=== PATIENT | female | born 2000 | race Caucasian/White ===

== ENCOUNTER 2021-07-06 16:24 | Emergency (ER) | payer MEDICAID, SELFPAY ==
--- NOTE | ~2021-07-06 | XR_ITS ---
EXAMINATION: XR CHEST CLINICAL INFORMATION: Chest pain COMPARISON: 08/19/2027 TECHNIQUE: Frontal view of the chest was obtained. FINDINGS: No significant abnormality is noted involving the heart, lungs, mediastinum, bony thorax or soft tissues. XR/XR chest 1V IMPRESSION: Unremarkable examination.
[2021-07-06 18:11] VITALS: BP 103/67; PULSE 70; RESP 17; TEMP 36.8; O2SAT 100; BMI 27.8
--- NOTE | 2021-07-06 18:17 | ECG_ITS ---
Test Reason : nausea Blood Pressure : / mmHG Vent. Rate : 059 BPM Atrial Rate : 059 BPM P-R Int : 146 ms QRS Dur : 074 ms QT Int : 412 ms P-R-T Axes : 075 034 008 degrees QTc Int : 407 ms Sinus bradycardia with sinus arrhythmia Otherwise normal ECG When compared with ECG of 19-AUG-2017 18:05, No significant change was found Referred By: Generic ED Physician Electronically Signed By:ISAAC GEORGE MD
[2021-07-06 19:01] LABS: MANUAL DIFF FLAG NO
[2021-07-06 19:15] LABS: Anion Gap 12 (12-20); Basophils Percent Auto 0.4 % (0-2); Blood Urea Nitrogen 13 mg/dL (9-16); Carbon Dioxide 23 mmol/L (22-29); Chloride 106 mmol/L (96-108); Creatinine Clr Calc Pharmacy 76.2; Eosinophils Absolute Auto 0.2 X10*3/uL (0.0-0.4); Eosinophils Percent Auto 2.1 % (0-4); Estimated Glomerular Filt Rate > 60; Glucose Random 81 mg/dL (60-115); Hematocrit 39.4 % (37.0-47.0); Hemoglobin 13.2 g/dl (12.0-16.0); Imm Gran Abs Auto 0.02 X10*3/uL (0.00-0.03); Imm Gran Pct Auto 0.2 % (0.0-0.4); Lymphocytes Percent Auto 30.6 % (20-40); Mean Corpuscular HGB Conc 33.5 g/dl (31.0-35.0); Mean Corpuscular Hemoglobin 30.6 pg (27.0-33.0); Mean Corpuscular Volume 91.2 fL (80.0-98.0); Mean Platelet Volume 10.4 fL (9.4-12.3); Monocytes Absolute Auto 0.6 X10*3/uL (0.1-1.2); Monocytes Percent Auto 6.4 % (2-11); Neutrophils Absolute Auto 5.9 x10*3/uL (2.0-8.3); Neutrophils Percent Auto 60.3 % (45-73); Platelet Count 222 X10*3/uL (160-400); Potassium 3.5 mmol/L (3.3-5.1); Red Blood Count 4.32 X10*6/uL (4.20-5.50); Red Cell Distribution Width 11.6 % (11.0-16.0); Sodium 137 mmol/L (135-145); White Blood Count 9.8 X10*3/uL (4.8-10.8)
[2021-07-06 19:23] LABS: Troponin-I High Sensitivity < 3.5 ng/L (<3.5-17.0)
--- NOTE | 2021-07-06 21:52 | ED.GENADULT ---
HPI - General Adult General Chief complaint: General Medical Stated complaint: Fever/nausea/diarrhea Time Seen by Provider: 07/06/21 21:52 History of Present Illness HPI narrative: Patient is 20 years old positive fever up to 101. Left-sided chest pain positive mild cough. Positive diarrhea. Patient had her coronavirus vaccine back in November. No booster. Sent in for further evaluation. No pain on urination. [place] [facility] No change in smell and taste. No abdominal pain. Patient took an Advil prior to arrival. Related Data Previous Rx's Medication Instructions Recorded ibuprofen 400 mg tablet 400 mg PO Q6H PRN #20 tab 07/07/21 Allergies Allergy/AdvReac Type Severity Reaction Status Date / Time No Known Allergies Allergy Verified 07/06/21 18:11 [No Known Allergies*] Review of Systems Review of Systems: Positive coughing positive fever positive generalized malaise Yes all other systems are reviewed and are negative PMFSH Past Medical History Attestation statement: The following information was validated with the patient. Medical History Endometriosis Failure to thrive in adult Migraine with aura Surgical History H/O abdominal surgery H/O adenoidectomy Tympanic tube insertion Social History Social History Advance Directives: No Advance Directives Information Provided: Yes Patient : No Physical Exam Vital Signs: Vital Signs: Last Vital Signs Temp 98.7 F 07/07/21 00:00 Pulse 82 07/07/21 00:00 Resp 18 07/07/21 00:00 BP 128/69 07/07/21 00:00 Pulse Ox 97 07/07/21 00:00 BMI result Body Mass Index 27.8 Appearance: Alert. Oriented X3. No acute distress. Eyes: Pupils equal, round and reactive to light. ENT: Pharynx normal. Neck: Normal inspection. Neck supple. No lymph nodes noted. No crepitus CVS: Normal heart rate and rhythm. Pulses normal. Normal S1 and S2 Respiratory: No respiratory distress. Breath sounds normal. No Wheezing. No rales Abdomen: Soft and nontender. No rigidity. No distention. good BS x4 Skin: Skin warm and dry. Normal skin color. Normal skin turgor. Extremities: No lower extremity edema. Neurovascular intact to all extremities. No Lacerations. No Rash Neuro: Oriented X 3. No motor deficit. No sensory deficit. Moving all extermities. No slurred speech Medical Decision Making MDM Narrative Medical decision making narrative: well-appearing no acute distress. Patient's COVID test was negative. Positive upper respiratory symptoms. EKG showed a sinus pattern heart rate is 60 RI QRS QTC within normal limits is no acute ST segment elevation. Patient well-appearing. Will discharge patient home. Advised close follow-up on an outpatient basis. Lab Data Result diagrams: 07/06/21 18:51 07/06/21 18:51 Labs: Lab Results 07/06/21 07/06/21 07/06/21 Range/Units 18:51 18:51 18:51 WBC 9.8 (4.8-10.8) X10*3/uL RBC 4.32 (4.20-5.50) X10*6/uL Hgb 13.2 (12.0-16.0) g/dl Hct 39.4 (37.0-47.0) % MCV 91.2 (80.0-98.0) fL MCH 30.6 (27.0-33.0) pg MCHC 33.5 (31.0-35.0) g/dl RDW 11.6 (11.0-16.0) % Plt Count 222 (160-400) X10*3/uL MPV 10.4 (9.4-12.3) fL Immature Gran % (Auto) 0.2 (0.0-0.4) % Neut % (Auto) 60.3 (45-73) % Lymph % (Auto) 30.6 (20-40) % [place] % (Auto) 6.4 (2-11) % Eos % (Auto) 2.1 (0-4) % Baso % (Auto) 0.4 (0-2) % Lymph # (Auto) 3.0 (1.2-4.9) X10*3/uL [place] # (Auto) 0.6 (0.1-1.2) X10*3/uL Eos # (Auto) 0.2 (0.0-0.4) X10*3/uL Baso # (Auto) 0.0 (0.0-0.2) X10*3/uL Abs Immat Gran (auto) 0.02 (0.00-0.03) X10*3/uL Absolute Neuts (auto) 5.9 (2.0-8.3) x10*3/uL Absolute Nucleated RBC 0.000 (0.0-0.012) X10*3/uL Nucleated RBC % (auto) 0.0 (0.0-0.2) /100WBC Sodium 137 (135-145) mmol/L Potassium 3.5 (3.3-5.1) mmol/L Chloride 106 (96-108) mmol/L Carbon Dioxide 23 (22-29) mmol/L Anion Gap 12 (12-20) BUN 13 (9-16) mg/dL Creatinine 0.77 (0.5-1.4) mg/dL Estim Creat Clear Calc 76.2 Estimated GFR > 60 Random Glucose 81 (60-115) mg/dL Calcium 9.0 (8.4-10.2) mg/dL Troponin I High Sens < 3.5 (<3.5-17.0) ng/L COVID-19 ([place]) (Negative) COVID-19 Clin Com 07/06/21 Range/Units 22:55 WBC (4.8-10.8) X10*3/uL RBC (4.20-5.50) X10*6/uL Hgb (12.0-16.0) g/dl Hct (37.0-47.0) % MCV (80.0-98.0) fL MCH (27.0-33.0) pg MCHC (31.0-35.0) g/dl RDW (11.0-16.0) % Plt Count (160-400) X10*3/uL MPV (9.4-12.3) fL Immature Gran % (Auto) (0.0-0.4) % Neut % (Auto) (45-73) % Lymph % (Auto) (20-40) % [place] % (Auto) (2-11) % Eos % (Auto) (0-4) % Baso % (Auto) (0-2) % Lymph # (Auto) (1.2-4.9) X10*3/uL [place] # (Auto) (0.1-1.2) X10*3/uL Eos # (Auto) (0.0-0.4) X10*3/uL Baso # (Auto) (0.0-0.2) X10*3/uL Abs Immat Gran (auto) (0.00-0.03) X10*3/uL Absolute Neuts (auto) (2.0-8.3) x10*3/uL Absolute Nucleated RBC (0.0-0.012) X10*3/uL Nucleated RBC % (auto) (0.0-0.2) /100WBC Sodium (135-145) mmol/L Potassium (3.3-5.1) mmol/L Chloride (96-108) mmol/L Carbon Dioxide (22-29) mmol/L Anion Gap (12-20) BUN (9-16) mg/dL Creatinine (0.5-1.4) mg/dL Estim Creat Clear Calc Estimated GFR Random Glucose (60-115) mg/dL Calcium (8.4-10.2) mg/dL Troponin I High Sens (<3.5-17.0) ng/L COVID-19 ([place]) Negative (Negative) COVID-19 Clin Com See Note Discharge Plan Discharge Clinical Impression: Acute viral syndrome Patient Disposition: Home, Self-Care Instructions: Viral Syndrome (ED) Prescriptions: New ibuprofen 400 mg tablet 400 mg PO Q6H PRN (Reason: pain) Qty: 20 RF: 0 Referrals: Physician,None [Primary Care Provider] - 2 days ( Follow-up with your doctor in 2 days. Lots of fluid hydrate.)
[2021-07-06 22:58] VITALS: RESP 16; TEMP 36.4
[2021-07-06 23:34] LABS: COVID-19 Test Negative (Negative)
[2021-07-07] VITALS: BP 128/69; PULSE 82; RESP 18; TEMP 37.1; O2SAT 97
== END 2021-07-07 01:37 | disposition home or self-care (01) ==
PROVIDERS: Emergency Provider Emergency Medicine Emergency Medical Services
DX: B34.9 Viral infection, unspecified (principal); Z20.822 Contact with and (suspected) exposure to COVID-19
CPT/HCPCS: 36415; 71045; 80048; 84484; 85025; 87635; 93005; 99283; 99284

== ENCOUNTER 2024-12-19 12:30 | Outpatient (RCR) | payer BC, SELFPAY ==
[2024-12-04 11:52] VITALS: BP 121/85; PULSE 64; TEMP 36.8; BMI 27.9
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
--- NOTE | 2024-12-07 11:56 | PC.NURSE ---
Patient looking for a new PCP. Upon admission on 12/04/24 patient and I called a few PCP's looking to make a new PCP appointment however the offices we called had no openings including at all the [facility] Primary care locations. Patient given a list of PCP providers listed on her insurance website to call on her own.
--- NOTE | 2024-12-10 14:09 | HO.PHP ---
PHP staff member placed a referral for OP therapy and med management to [facility] for Kristine. PHP staff member is awaiting on the scheduled appointment dates and times.
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
--- NOTE | 2024-12-13 13:15 | PC.NURSE ---
New PCP appointment with [facility]. [address] [place] [address]. Office Number [phone]. Appointment on August 21, 2025 at 1:30 pm.
--- NOTE | 2024-12-19 22:06 | HO.PHPPROGNO ---
Subjective Subjective Date of Service: 12/19/24 Reason For Visit: depression Interim History: Patient seen for follow-up, anticipating discharge at the end of program today.? Reports no acute issues or concerns. Medication compliant, medications well-tolerated. Denies any adverse effects.? Mood is stable.? Denies any hopelessness or SI. Denies thoughts of harming self or others at this time. Denies any aggressive ideation or HI. Denies any paranoia or AH or VH. Sleep, appetite, energy stable. Alert, oriented, in no acute distress. Calm, cooperative. Mood stable, affect appropriate. Speech normal. Thought process linear, coherent, more goal-directed. Thought content related to stressors, future-oriented, denies any helplessness, hopelessness or SI.? No aggressive ideation or HI. No paranoia or delusional content elicited. No evidence of psychosis. Insight and judgment fair-good. Discharge from [facility] Continue regular medications Refills sent to pharmacy Will defer further medication management to outpatient provider *Safety plan reviewed *Discharge diagnoses, treatment course, discharge plan have been reviewed with patient (including medication regime, medication management, potential side effects) as well as treatment rationale were also revisited *Discharge paperwork signed and given to patient, copy sent for scanning to chart Diagnostics Vital Signs (24Hr): BMI result Body Mass Index 27.9 Assessment & Plan Certification I certify that partial hospital treatment is medically necessary due to the symptoms and problems resulting from the patient's mental illness and the failure to treat the patient at the partial hospital level of care would likely result in the patient requiring inpatient psychiatric care which could not be prevented at a less intensive level of care. Total time managing care of this patient today ____ minutes. Discharge Plan Discharge Attending provider: Susannah Sy Additional Instructions: New PCP appointment with [facility]. [address] [place] [address]. Office Number [phone]. Appointment on August 21, 2025 at 1:30 pm. Medications: New sertraline 50 mg tablet 50 mg PO DAILY MDD 50mg 17 Days Qty: 17 0RF Rx Instructions: take 1/2 tab x 7d inc to 1 daily prazosin 1 mg capsule 1 mg PO BEDTIME 14 Days Qty: 14 0RF hydroxyzine HCl 10 mg tablet 10 mg PO TID PRN (Reason: anxiety) Qty: 30 0RF Stand Alone Forms: Patient Portal Discharge page Patient Education: Depression (DC), Anxiety (ED) Print Language: Slovak
== END 2024-12-19 23:59 | disposition home or self-care (01) ==
LOC: HO.PHPA 12:30
PROVIDERS: Visit Provider Psychiatry & Neurology Psychiatry
DX: F43.10 Post-traumatic stress disorder, unspecified (principal); F32.A Depression, unspecified; Z91.51 Personal history of suicidal behavior
CPT/HCPCS: 90791; 90853